=== PATIENT | male | born 2000 | race Caucasian/White ===

== ENCOUNTER 2020-03-31 20:08 | Emergency (ER) | payer OTHER ==
[~2020-03-31] VITALS: Ht 190.5 cm; Wt 71.8 kg
--- NOTE | 2020-03-31 20:22 | NUR ---
PT AMBULATORY TO ROOM, STEADY GAIT.
--- NOTE | 2020-03-31 20:31 | NUR ---
ERP TO BEDSIDE.
[2020-03-31 20:51] LABS: BASOPHILS # (AUTO) 0.03 x10^3/uL (0-0.3); BASOPHILS % (AUTO) 1 % (0-1); EOSINOPHILS # (AUTO) 0.12 x10^3/uL (0-0.8); EOSINOPHILS % (AUTO) 2 % (1-7); LYMPHOCYTES # (AUTO) 2.02 x10^3/uL (1-6.1); LYMPHOCYTES % (AUTO) 28 % (22-44); MD NO; MEAN CORPUSCULAR HEMOGLOBIN 32.6 pg (27.5-34.5); MEAN CORPUSCULAR HGB CONC 33.4 g/dL (33.2-36.2); MEAN CORPUSCULAR VOLUME 97.7 fL (81-97); MEAN PLATELET VOLUME 8.6 fL (7.4-10.4); MONOCYTES # (AUTO) 0.82 x10^3/uL (0-1.4); MONOCYTES % (AUTO) 11 % (2-9); NEUTROPHILS # (AUTO) 4.24 x10^3/uL (1.8-8.0); NEUTROPHILS % (AUTO) 59 % (42-75); PLATELET COUNT 294 x10^3/uL (130-400); RED BLOOD COUNT 4.47 x10^6/uL (4.38-5.82); RED CELL DISTRIBUTION WIDTH 13.8 % (9.4-14.8)
[2020-03-31 21:01] LABS: ALBUMIN 4.2 g/dL (3.4-5.0); ANION GAP 6 mmol/L (5-15); CALCIUM 9.5 mg/dL (8.5-10.1); CHLORIDE 110 mmol/L (98-107); CREATININE 1.07 mg/dL (0.7-1.3)
--- NOTE | 2020-03-31 21:14 | NUR ---
PT STATES HE HAS A LOT GOING ON WITH SCHOOL, TODAY HE FEELS LIKE THE SMOKE IN THE AIR IRRITATED HIS LUNGS, DENIES ANY RESPIRATORY S/SX AT THIS TIME. STATES HE FELT LIKE HE WAS GOING TO PASS OUT BUT DIDN'T. PT STATES HE'S EXPERIENCED ANXIETY IN THE PAST BUT HAS NEVER BEEN MEDICATED FOR IT.
--- NOTE | 2020-03-31 21:38 | NUR ---
TASK RN. PT D/C'D PER ORDERS. PT VERBALIZED UNDERSTANDING OF D/C ORDERS.
[2020-03-31 21:41] VITALS: BP 129/82
== END 2020-03-31 21:43 | disposition home or self-care (01) ==
LOC: ED 21:00
DX: F41.1 Generalized anxiety disorder (principal); R55 Syncope and collapse; R42 Dizziness and giddiness; R11.0 Nausea; R94.31 Abnormal electrocardiogram [ECG] [EKG]
CPT/HCPCS: 36415; 80048; 82040; 85025; 93005; 99284; Q0177